=== PATIENT | female | born 1975 | race Caucasian/White ===

== ENCOUNTER 2017-03-11 13:14 | Inpatient (IN) | payer BC ==
[~2017-03-11] VITALS: Ht 167.6 cm; Wt 63.2 kg
[~2017-03-11 13:14] MED LIST: AMOXICILLIN500 M2 PO; NOMEDS; ZOFRAN ODT4 MG PO
[2017-03-11 13:18] VITALS: BP 115/63
[2017-03-11 13:37] LABS: URINE BILIRUBIN - DIPSTICK NEGATIVE (NEG); URINE BLOOD 2+ (NEG)
[2017-03-11 13:42] LABS: LYMPH # 0.5 K/mm3 (0.7-4.5); LYMPH % 3.5 % (10-50.0)
--- NOTE | 2017-03-11 14:15 | Emergency Room Report ---
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 N Clinical Suspician of Infection? N Mental Status: 1 - Regular (Normal Baseline) Sepsis Risk:Possible Sepsis Risk Have you (or family members/close friends) recently traveled outside the [place]? N If Yes, where/when: Have you had exposure to infectious disease within the past month? N TB? Other? Specify: 42 years old white female with history of kidney stone. She developed left-sided flank pain yesterday. Woke up this morning with fever and chills vomited 4 times at work and she came to the ED. She denies having diarrhea hematemesis melanotic stool dysuria hematuria or frequency. She has BAD ORAL hygiene. Source patient, RN notes reviewed, family Exam Limitations no limitations ALLERGIES Coded Allergies: No Known Allergies (04/10/16) History Medical History General CAD? No Angina: No MT: No Hypertension? No Hyperlipidemia? No CHF? No DVT? No PE? No COPD? No Asthma? No Anemia? No GERD? No Gastric ulcers? No GI Bleed? No Hernia? No Thyroid Problems? No Hypothyroidism? No CVA? No Seizures? No Diabetes? No Renal Insuffiency? No End Stage Renal Disease? No UTI? No Stones? No GB Disease: No Nephritic Syndrome? No Asplenia? No Hepatitis? No Sickle Cell Disease? No Arthritis? No Migraines? No Cataracts? No Glaucoma? No MRSA? No HIV? No TB? No Anxiety? No Depression? No Cancer? No Immunization Hx DT/Tetanus > 10 Years Ago Surgical Hx Previous Surgery?Y Hysterect LASER FOR ENDOMETRIOSIS COMMUNICATION SPEC Hx LMP N/A Social History Smoking Hx Smoker: Never Smoker Tobacco: No Alcohol Alcohol: No Review of Systems All Other Systems Reviewed and Negative Constitutional see HPI, fever Eyes no symptoms reported ENT no symptoms reported. Respiratory no symptoms reported Cardiovascular no symptoms reported Gastrointestinal no symptoms reported, see HPI, nausea, vomiting Genitourinary no symptoms reported, see HPI. Musculoskeletal no symptoms reported Skin no symptoms reported Psychiatric/Neurological no symptoms reported Physical Exam Vital Signs Vital Signs Date Time Temp Pulse Resp B/P Pulse O2 O2 Flow FiO2 Ox Delivery Rate 03/11 1526 99.8 90 16 119/73 98 03/11 1451 99.8 90 16 119/73 98 03/11 1426 106 16 119/73 98 03/11 1318 101.2 118 20 115/63 96 - WBC >12,000 or <4,000 or 10% bands? 2 or more SIRS Criteria Met? B/P:115/63 MAP: Creatinine >2.0? UA output<0.5ml/kg/hr for 2 hrs? Platelet count >100,000? Lactate >2.0mmol/1? INR >1.2 or PTT > than 60 sec? Evidence of Organ Dysfunction? Provider documented clinical suspician of infection? N Sepsis Criteria Count: 3 Sepsis Risk: Possible Sepsis Risk General Appearance normal appearance, WD/WN, no apparent distress Eye Exam - bilateral eye normal exam, bilateral eye PERRL, bilateral eye EOMI Ear, Nose, Throat hearing grossly normal, normal ENT inspection, POOR DENTAL HYGIENE WITH FOUL SMELL Neck normal inspection, non-tender, supple, full range of motion Respiratory Status Yes: trachea midline, chest symmetrical, non tender chest. No: respiratory distress. Lung Sounds bilateral: normal breath sounds, lungs clear. Cardiovascular normal exam, regular rate/rhythm, no peripheral edema, no gallop, no JVD, no murmur, no rub, normal peripheral pulses Peripheral Pulses Pulses normal Yes Gastrointestinal soft, no guarding, no rebound, tenderness, THE PATIENT HAD left LOWER QUADRANT TENDERNESS WITH NO REBOUND ACROSS TENDERNESS SHE DID HAVE left cva TENDERNESS, THE ABDOMEN WAS SOFT NO GUARDING NO RIGIDITY, POSITIVE BOWEL SOUNDS. Back normal inspection, no CVA tenderness, no vertebral tenderness, CVA tenderness (L) Extremities non-tender, normal range of motion, normal inspection Pelvic normal external exam Nurse present during exam? 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 No Results/Orders Laboratory Tests 03/11/17 1421: Lactic Acid 0.8 03/11/17 1330: Sodium 140, Potassium 3.7, Chloride 104, Carbon Dioxide 25, BUN 17, Creatinine 1.2 H, Estimated Creat Clear 57, Estimated GFR (MDRD) 50 L, Glucose 116 H, Calcium 8.8, Total Bilirubin 0.6, AST 12 L, ALT 14, Alkaline Phosphatase 126 H , Total Protein 7.8, Albumin 4.1, Globulin 3.7 H, Albumin/Globulin Ratio 1.1, WBC 14.7 H, RBC 4.84, Hgb 14.0, Hct 42.1, MCV 87.1, RDW 12.7, Plt Count 238, MPV 6.9 L, Gran % 91.3 H, Gran # 13.4 H, Total Counted 100, Lymphocytes % 3.5 L, Monocytes % 3.5, Eosinophils % 1.4, Basophils % 0.3, Neutrophils 89 H, Lymphocytes (Manual) 5 L, Lymphocytes # 0.5 L, Monocytes (Manual) 6, Monocytes # 0.5, Eosinophils # 0.2, Basophils # 0.0, Platelet Estimate NORMAL, PUBS MCHC 33.3, MCH 29.0 03/11/17 1320: Urine Color YELLOW, Urine Appearance CLOUDY, Urine pH 5.5, Ur Specific [place] 1.025, Urine Protein NEGATIVE, Urine Ketones NEGATIVE, Urine Blood 2+ H, Urine Nitrate POSITIVE H, Urine Bilirubin NEGATIVE, Urine Urobilinogen 0.2, Ur Leukocyte Esterase 3+ H, Urine RBC 3-5, Urine WBC 20-50, Ur Squamous Epith Cells 3-5, Urine Bacteria 4+, Urine Glucose NEGATIVE Current Medication Orders Sig/Richard Start time Last Medication Dose Route Stop Time Status Admin Ceftriaxone Sodium 0 .STK-MED ONE 03/11 1431 DC IV Ondansetron HCl 4 MG ONCE ONE 03/11 1430 DC 03/11 IV 03/11 1431 1439 Sodium Chloride 50 ML .STK-MED ONE 03/11 1430 DC IV Acetaminophen 650 MG ONCE ONE 03/11 1415 CAN PO 03/11 1416 Ceftriaxone Sodium 1 GM ONCE ONE 03/11 1415 DC 03/11 Sodium Chloride 50 ML IV 03/11 1444 1432 Acetaminophen 650 MG ONCE ONE 03/11 1345 DC 03/11 PO 03/11 1346 1353 Ondansetron HCl 4 MG 03/11 1345 CAN IV Sodium Chloride 1,000 ML .Q1H1M 03/11 1345 DC 03/11 IV 03/11 1445 1343 Sodium Chloride 10 ML PRN PRN 03/11 1345 AC IV 03/12 1332 Acetaminophen 0 .STK-MED ONE 03/11 1338 DC PO Ondansetron HCl 0 .STK-MED ONE 03/11 1338 DC .ROUTE Sodium Chloride 1,000 ML .STK-MED ONE 03/11 1338 DC IV Sodium Chloride 10 ML PRN PRN 03/11 1330 AC IV 03/12 1330 Orders Procedure Date/time Status Decision to admit 03/11 1524 Active CULTURE, BLOOD 03/11 1409 Active LACTIC ACID 03/11 1409 Complete IV SALINE LOCK 03/11 1332 Active URINALYSIS/COMPLETE 03/11 1332 Complete CBC WITH AUTO DIFF 03/11 133 Complete CHEM 12 PROFILE 03/11 1332 Complete DIFFERENTIAL-WBC 03/11 1330 Complete CULTURE, URINE 03/11 1320 Active Departure Departure Time of Disposition 1657 Disposition Still a Patient Clinical Impression Primary Impression: Pyelonephritis Condition STABLE Referrals Robin Germain MD Discharge Counseling Counseled pt/family regarding diagnosis, test results, medications/RX, follow up needs ED Critical Care Critical Care No If Critical Care minutes are documented, the time involved in the performance of seperately reportable procedures was not counted toward critical care time documented. I directly delivered medical care to this critically ill and/or injured patient. Timely evaluation and treatment was necessary to address the significant organ system(s) dysfunction present in this patient. at 1658
[2017-03-11 14:17] LABS: NEUTROPHILS 89 % (42-76)
[2017-03-11 17:26] VITALS: BP 119/73
--- NOTE | 2017-03-11 17:43 | HISTORY AND PHYSICAL REPORT ---
Demographics: Admit date: 03/11/17 Chief complaint: LEFT flank pain with nausea and vomiting PRIMARY DIAGNOSIS: left PYELONEPHRITIS Allergies: Coded Allergies: No Known Allergies (04/10/16) History of present illness: History of present illness: 42-year-old female with history of kidney stones noticed onset of mild discomfort in the LEFT back yesterday evening. Patient continued to have pain this morning and symptoms progressed to include nausea and vomiting along with subjective fevers. Patient tried to go to work where she continued to have episodes of nausea and vomiting. Patient did not really increase the because of her symptoms she presented to the emergency department. In the emergency department she had an elevated white blood cell count, abnormal urine, LEFT flank and CVA tenderness. Exam and labs were consistent with pyelonephritis and she has been admitted for IV fluid hydration and IV antibiotics. Patient is received Rocephin in the emergency department. She denies any significant history of urinary tract infections Past medical history: Family HX Family Hx Insignificant No Immunization HX DT/Tetanus > 10 Years Ago General CAD? No Angina: No AL: No Hypertension? No Hyperlipidemia? No CHF? No DVT? No PE? No COPD? No Asthma? No Anemia? No GERD? No Gastric ulcers? No GI Bleed? No Hernia? No Thyroid Problems? No Hypothyroidism? No CVA? No Seizures? No Diabetes? No Renal Insuffiency? No UTI? No Stones? No GB Disease: No Nephritic Syndrome? No Asplenia? No Hepatitis? No Sickle Cell Disease? No Arthritis? No Migraines? No Cataracts? No Glaucoma? No MRSA? No HIV? No TB? No Anxiety? No Depression? No Cancer? No Past Surgical HX Previous Surgery?Y Hysterect LASER FOR ENDOMETRIOSIS Social Hx: Smoking HX Tobacco No Alcohol Alcohol: No Hx of Drug Use Drug Use? No Patien't marital status is Review of systems: Constitutional see HPI. Respiratory no symptoms reported. Cardiovascular no symptoms reported Gastrointestinal/Abdominal see HPI Genitourinary see HPI. Musculoskeletal no symptoms reported. Neurological Yes: no symptoms reported. Exam: Lab data for last 24 hours: Laboratory Tests 03/11/17 1421: Lactic Acid 0.8 03/11/17 1330: Sodium 140, Potassium 3.7, Chloride 104, Carbon Dioxide 25, BUN 17, Creatinine 1.2 H, Estimated Creat Clear 57, Estimated GFR (MDRD) 50 L, Glucose 116 H, Calcium 8.8, Total Bilirubin 0.6, AST 12 L, ALT 14, Alkaline Phosphatase 126 H , Total Protein 7.8, Albumin 4.1, Globulin 3.7 H, Albumin/Globulin Ratio 1.1, WBC 14.7 H, RBC 4.84, Hgb 14.0, Hct 42.1, MCV 87.1, RDW 12.7, Plt Count 238, MPV 6.9 L, Gran % 91.3 H, Gran # 13.4 H, Total Counted 100, Lymphocytes % 3.5 L, Monocytes % 3.5, Eosinophils % 1.4, Basophils % 0.3, Neutrophils 89 H, Lymphocytes (Manual) 5 L, Lymphocytes # 0.5 L, Monocytes (Manual) 6, Monocytes # 0.5, Eosinophils # 0.2, Basophils # 0.0, Platelet Estimate NORMAL, PUBS MCHC 33.3, MCH 29.0 03/11/17 1320: Urine Color YELLOW, Urine Appearance CLOUDY, Urine pH 5.5, Ur Specific [place] 1.025, Urine Protein NEGATIVE, Urine Ketones NEGATIVE, Urine Blood 2+ H, Urine Nitrate POSITIVE H, Urine Bilirubin NEGATIVE, Urine Urobilinogen 0.2, Ur Leukocyte Esterase 3+ H, Urine RBC 3-5, Urine WBC 20-50, Ur Squamous Epith Cells 3-5, Urine Bacteria 4+, Urine Glucose NEGATIVE Microbiology 03/11 142 BLOOD: Anaerobic Blood Culture - RECD 03/11 142 BLOOD: Aerobic Blood Culture - RECD 03/11 1421 BLOOD: Anaerobic Blood Culture - RECD 03/11 142 BLOOD: Aerobic Blood Culture - RECD 03/11 1320 URINE CC: Urine Culture - RECD Admission vital signs: 1ST Vital Signs Result Date Time Pulse Ox 96 03/11 1318 B/P 115/63 03/11 1318 Temp 101.2 03/11 1318 Pulse 118 03/11 1318 Resp 20 03/11 1318 O2 Delivery ROOM AIR 03/11 1726 Exam General appearance: normal appearance, alert, awake Eyes: normal exam, anicteric ENT: normal exam, mucous membranes moist, teeth/gums abnormal Neck: normal inspection, non-tender, no carotid bruit, no JVD Cardiovascular: normal exam Respiratory: normal exam, clear to auscultation ABD: soft, bowel sounds present, tenderness (LEFT FLANK AND LEFT LOWER QUAD), LEFT CVAT TENDERNESS Extremities: moves all Plan: Problem List 1. Pyelonephritis Plan: Admit for IV antibiotics and IV fluids. Antiemetics and pain medications have been ordered as well at 1743
--- NOTE | 2017-03-11 17:49 | RADIOLOGY REPORT PS360 ---
CT ABD PELVIS W/O CONTRAST CLINICAL INDICATION: LEFT CVA PAIN, FEVER AND WBCS IN THE URINE ORDERING PHYSICIAN: Nate Murguia MD PATIENT AGE: 42 years COMPARISON: None TECHNIQUE: Axial images obtained with sagittal and coronal reformats. PROCEDURE: Oral Contrast: None IV Contrast: None . FINDINGS: There are mild atelectatic changes in the lung bases. The liver, gallbladder, spleen, adrenal glands, and pancreas have an unremarkable unenhanced CT appearance. There are punctate bilateral renal calculi measuring up to 3 mm in the lower pole on the right and 2 mm in the lower pole on the left. There is moderate left hydronephrosis and hydroureter secondary to a stone within the distal one third of the left ureter at the pelvic inlet. At least one stone measures 5 mm x 5 mm with 2 smaller stones just proximal to this larger stone measuring 4 and 3 mm. The stones are partially 5 mm proximal to the ureterovesical junction. There is moderate stranding of the left perinephric and proximal periureteral fat. Unremarkable appendix. No evidence of diverticulitis, intestinal obstruction, or free air. No acute bony anomalies IMPRESSION: 1. Left distal ureteral calculi with moderate hydronephrosis and hydroureter as described above. The largest stone in the distal left ureter measuring approximately 5 x 5 mm. There is moderate stranding of the left perinephric and periureteral fat suggesting underlying inflammation/infection or hemorrhage 2. Bilateral nephrolithiasis
[2017-03-11 18:55] VITALS: BP 123/61
[2017-03-11 19:34] VITALS: BP 96/59
[2017-03-11 19:40] VITALS: BP 96/59
[2017-03-12 04:19] VITALS: BP 91/51
[2017-03-12 07:05] LABS: LYMPH % 12.8 % (10-50.0)
[2017-03-12 07:17] LABS: HEMOGLOBIN 11.1 g/dL (12.2-16.2)
--- NOTE | 2017-03-12 07:32 | ACUTE CARE PROGRESS NOTE (QUA) ---
Progress Notes Subjective Date 03/12/17 Time 0730 Note Patient reports feeling slightly better. She is hungry. Pain is improved slightly. She's been ambulating. Nursing staff reports blood cultures are growing gram-negative nayla which is likely E. coli per preliminary testing. Patient appears comfortable. Lungs are clear. Heart is regular rate and rhythm. Abdomen has LEFT anterior flank and LEFT lower quadrant tenderness. Continue IV antibiotics which patient will need for solid week due to bacteremia associated with her pyelonephritis. Continue IV fluids. Advance diet. Assessment/Plan Problem List 1. Pyelonephritis This inpt stay is expected to cross 2 MNs from start of care Yes at 0731
--- NOTE | 2017-03-12 07:40 | PHARMACY CLINIC NOTE ---
Patient Demographics Patient Demographics Admission date: 03/11/17 Date: 03/12/17 Time: 0739 Allergies Coded Allergies: No Known Allergies (04/10/16) HEIGHT- FT: 5 IN: 6.00 K.192 VTE General Information Labs: Laboratory Tests 03/12 03/11 0640 1330 Hematology Hgb (12.2 - 16.2 g/dL) 11.1 L 14.0 Hct (37.0 - 47.0 %) 33.1 L 42.1 Plt Count (142 - 424 K/mm3) 170 238 Disclaimer The following section includes nursing documentation that has been pulled in for pharmacy review. Patient's VTE score: 1 Patient's VTE Risk: VERY LOW RISK Clinical trial participant? No VTE prophylaxis NQF [id number] VTE prophylaxis ordered? Yes Type of prophylaxis/treatment: SAVANNAH at 0739
[2017-03-12 08:00] VITALS: BP 100/72
[2017-03-12 08:01] VITALS: BP 100/72; BP 91/51
[2017-03-12 15:10] VITALS: BP 110/59
[2017-03-12 19:46] VITALS: BP 106/69
[2017-03-12 20:30] VITALS: BP 106/69
[2017-03-13 04:43] VITALS: BP 108/63
--- NOTE | 2017-03-13 07:27 | ACUTE CARE PROGRESS NOTE (QUA) ---
Progress Notes Subjective Date 03/13/17 Time 0725 Note Patient reports improvement in pain. She has not had any fevers and over 24 hours. Her only pain is been headache and that is now resolved. Patient looks well. Lungs are clear. Heart has regular rate and rhythm. Abdomen is soft. LEFT flank is nontender. CT scan performed late on the day of admission did show a 5 x 5 mm LEFT distal ureteral stone. Patient will remain on IV fluids today until she receives her evening dose of Rocephin. When she receives her dose of Rocephin she can be discharged home. She will need daily IV antibiotics with dose of Rocephin 1 g daily given intravenously. She will follow-up with her primary care physician Dr. Donato Gillespie on Wednesday or Wednesday of this coming week. KUB will be performed today. There is a chance patient may have passed the stone as her pain has improved significantly. Objective Findings Last VS-Temp:98.0 B/P:108/63 Pulse:78 Resp:16 SaO2:96 ROOM AIR Last weight lbs:139 oz:5 K.192 Method:Bed Scales Assessment/Plan Problem List 1. Pyelonephritis 2. E coli bacteremia 3. Ureterolithiasis Patient condition Stable Plan: continue current care, initiate discharge plan This inpt stay is expected to cross 2 MNs from start of care Yes at 0701
--- NOTE | 2017-03-13 07:29 | Discharge Summary ---
Demographics Admit date: 03/11/17 Discharge date: 03/13/17 Discharge diagnoses Problem List 1. Pyelonephritis 2. E coli bacteremia 3. Ureterolithiasis History of present illness History of present illness 42-year-old female with history of kidney stones noticed onset of mild discomfort in the LEFT back yesterday evening. Patient continued to have pain this morning and symptoms progressed to include nausea and vomiting along with subjective fevers. Patient tried to go to work where she continued to have episodes of nausea and vomiting. Patient did not really increase the because of her symptoms she presented to the emergency department. In the emergency department she had an elevated white blood cell count, abnormal urine, LEFT flank and CVA tenderness. Exam and labs were consistent with pyelonephritis and she has been admitted for IV fluid hydration and IV antibiotics. Patient is received Rocephin in the emergency department. She denies any significant history of urinary tract infections. Patient was admitted and placed on IV Rocephin. Within 24 hours urine and blood cultures were positive for E. coli that was sensitive to Rocephin. Patient was continued on Rocephin 1 g intravenously daily. Patient showed gradual improvement. After 24 hours patient became afebrile and remained afebrile the rest of hospitalization. She was maintained on IV fluids of normal saline at 150 ML's an hour during hospitalization. After 24 hours she did not require any further pain medication. CT scan performed late on the evening of admission did confirm a 5 x 5 mm distal LEFT ureteral stone. As patient's pain improved there is a chance she may have passed a stone. KUB was performed on the day of discharge. As patient had improved and was not having any pain decision was made to discharge patient to home. She received her third dose of IV antibiotics on the day of discharge and will need to return for 4 additional doses to complete a seven-day course of intravenous Rocephin. This was arranged prior to discharge. Patient will follow-up with her primary care physician Dr. Donato Gillespie early this coming week. Medications Medications: Discharge meds are as noted. Follow up Follow up in office in: 4 DAYS with: DONATO GILLESPIE
[2017-03-13] MEDS ORDERED: NORCO 325 MG-51 TAB PO (07:30)
[2017-03-13 08:00] VITALS: BP 123/82
--- NOTE | 2017-03-13 09:18 | RADIOLOGY REPORT PS360 ---
KUB (SINGLE VIEW) HISTORY: left distal ureter stone 5x5 mm, progress study Patient Age: 42 years: Female Ordering Physician: Robin Germain MD TECHNIQUE: AP supine abdomen. KUB. COMPARISON :CT abdomen pelvis from 03/11/2017 FINDINGS Mild atelectasis likely at the left lung base.. . On plain film days left ureteral stone is again seen projected over the left inferior sacrum, just medial to the inferior margin of the left SI joint. On plain film this measures up to~ 4 mm size] IN its transverse dimension on plain film. It is not progressed significantly since the comparison CT 03/11/2017. But perhaps 2 mm more distal but this is equivocal . More inferiorly at the pelvis there is a phlebolith with. Central lucency.. A generous stool is seen throughout the colon suggesting mild constipation. No distal calculi are seen in either kidney on plain film evaluation. IMPRESSION: The 4 mm distal left ureteral stone again noted projected over the left sacrum. no definitive movement since CT from 03/11/2017. Question perhaps 1 to 2 mm more distal at left ureter but this is equivocal Generous stool seen throughout the colon reflecting moderate constipation.
[2017-03-13 13:16] VITALS: BP 123/82
--- OUTSIDE RECORDS SUMMARY | 2017-04-16 18:16 | External Medical Summary Rpt ---
Author Author , BRADLEY HUERTA Address Unknown Phone [email or web address] 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 CHRONIC R07.89 OTHER CHEST PAIN R11.2 NAUSEA WITH VOMITING, UNSPECIFIED Allergies, Adverse Reactions, Alerts Type Allergy to substance Adverse Reaction to Substance Substance Reaction Severity NO KNOWN ALLERGIES Unknown Unknown Medications Na ND Rx Da Fi Fi Am Da Di Ph RX Ph St me C No te ll ll ou ys ag ar # ys at rm s nt no ma ic us Or Da si cy ia de te s n re d Sa 63 11 0 No li 80 -1 ne 70 5- Lo 10 20 ng Fl 07 13 er us 5 h Ac 10 ti ML ve Sy ri ng e KE 00 11 0 No TO 40 -1 RO 93 5- Lo LA 79 20 ng C 50 13 er 30 1 Ac MG ti /M ve L AL BU 00 11 0 No TA 60 -1 LB 32 5- Lo -A 54 20 ng CE 42 13 er TA 1 WI Ac N- ti CA ve FF 50 -3 25 -4 0 Vital Signs 05-26-2013 15:50 Name Value Interpretat Reference Comment ion Range Body 98.2 [degF] Temperature BP 82 mm[Hg] Diastolic BP Systolic 131 mm[Hg] Heart 79 /min Rate/Pulse O2% 98 % Respiratory 18 /min Rate 05-26-2013 15:14 Name Value Interpretat Reference Comment ion Range O2% 99 % Respiratory 18 /min Rate 05-26-2013 14:13 Name Value Interpretat Reference Comment ion Range BP 91 mm[Hg] Diastolic BP Systolic 143 mm[Hg] Heart 83 /min Rate/Pulse Results Labs Lab Lab Date Result Refere Interp Status Commen Order Detail nces retati t Range on UA Microscopic Pnl # Ur Auto (03-24-2017 08:59) Hyaline 03-24- 0-6 0-6 complet Casts 017 /LPF ed Ur Ql 08:59 Auto [place] 0-2 None complet s 017 /HPF Seen, ed #/area 08:59 0-2 UrnS HPF Bacteri [id number] None complet a Ur Ql 017 00 Not Seen, ed Auto 08:59 detecte Trace d SCT /HPF Ref lab Automat complet test 017 ed ed method 08:59 Microsc opy WBC Ur 21-30 None complet Ql Auto 017 /HPF Seen ed 08:59 RBC # 7-12 None complet Ur 017 /HPF Seen, ed 08:59 0-2 UA Dipstick Pnl Ur (03-24-2017 08:59) Color [id number] Yellow, complet Ur 017 09 Straw ed 08:59 Yellow color SCT Urobili 0.2 0.2 - complet nogen 017 E.U./dL 1.0 ed Ur Ql 08:59 E.U./dL Strip Nitrite [id number] Negativ complet Ur Ql 017 09 e ed Strip 08:59 Negativ e SCT Leukocy [id number] Negativ complet te 017 00 e ed esteras 08:59 Moderat e Ur Ql e number Strip.a SCT uto Prot Ur [id number] Negativ complet Ql 017 09 e ed Strip 08:59 Negativ e SCT Hgb Ur 3571386 Negativ complet Ql 017 04 e ed Strip.a 08:59 Small uto SCT Bilirub [id number] Negativ complet Ur Ql 017 09 e ed Strip 08:59 Negativ e SCT Ketones 3513815 Negativ complet Ur Ql 017 09 e ed Strip 08:59 Negativ e SCT Glucose 8391336 Negativ complet Ur 017 09 e ed Strip-m 08:59 Negativ Cnc e SCT Sp Gr 1.019 1.001-1 complet Ur 017 .030 ed Strip 08:59 pH Ur 6.0 5.0-8.0 complet Strip.a 017 ed uto 08:59 Clarity [id number] Clear complet Ur 017 5 ed 08:59 Cloudy SCT Bacteria Ur Cult (03-24-2017 08:59) Bacteri [id number] complet a XXX 017 9 ed Aerobe 08:59 Normal Cult jennyfer SCT URINALYSIS/COMPLETE (05-26-2013 14:55) URINE 11-15-2 DK YELLOW complet COLOR 013 YELLOW ed 14:55 URINE 11-15-2 CLOUDY CLEAR complet APPEARA 013 ed NCE 14:55 URINE 11-15-2 NEGATIV NEG complet GLUCOSE 013 E ed - 14:55 DIPSTIC K URINE 11-15-2 NEGATIV NEG complet BILIRUB 013 E ed IN - 14:55 DIPSTIC K URINE 11-15-2 NEGATIV NEG complet KETONE 013 E mg/dL ed 14:55 URINE 11-15-2 Greater 1.005-1 complet SPECIFI 013 than .030 ed C 14:55 or GRAVITY equal to 1.030 URINE 11-15-2 NEGATIV NEG complet BLOOD 013 E ed 14:55 URINE 11-15-2 5.5 UNK 5.0-8.5 complet PH 013 ed 14:55 URINE 11-15-2 NEGATIV NEG complet PROTEIN 013 E mg/dL ed - 14:55 DIPSTIC K URINE 11-15-2 0.2 NEG complet UROBILI 013 E.U./dL ed NOGEN - 14:55 DIPSTIC K URINE 11-15-2 NEGATIV NEG complet NITRATE 013 E ed - 14:55 DIPSTIC K URINE 11-15-2 1+ NEG complet LEUK 013 ed ESTERAS 14:55 E URINE 11-15-2 OCC 0 complet RBC 013 rbc/hpf ed 14:55 URINE 11-15-2 5-10 O complet WBC 013 wbc/hpf ed 14:55 URINE 11-15-2 3-5 0-5 complet SQUAMOU 013 #/hpf ed S CELLS 14:55 URINE 11-15-2 1+ O complet BACTERI 013 ed A 14:55 COMPREHENSIVE METABOLIC PANEL (05-26-2013 14:05) Glucose 84 74-106 complet 013 mg/dL ed Bld-mCn 14:05 c BUN 05-26- 24 7-18 complet Bld-mCn 013 mg/dL ed c 14:05 Creat 0.9 0.6-1.0 complet SerPl-m 013 mg/dL ed Cnc 14:05 ESTIMAT 77 50-200 complet ED 013 ML/MIN ed CREATIN 14:05 INE CLEARAN CE GFR 70 59- complet (ESTIMA 013 ML/MIN ed SAVANNAH) 14:05 Sodium 142 136-145 complet SerPl-s 013 mmoL/L ed Cnc 14:05 Potassi 4.2 3.5-5.1 complet um 013 mmoL/L ed SerPl-s 14:05 Cnc Chlorid 103 98-107 complet e 013 mmoL/L ed SerPl-s 14:05 Cnc CO2 26 21.0-32 complet SerPl-s 013 mmoL/L .0 ed Cnc 14:05 Calcium 9.4 8.5-10. complet 013 mg/dL 1 ed SerPl-m 14:05 Cnc Prot 9.3 6.4-8.2 complet SerPl-m 013 gm/dL ed Cnc 14:05 Albumin 5.1 3.4-5.0 complet 013 gm/dL ed SerPl-m 14:05 Cnc GLOBULI 4.2 1.3-3.2 complet N 013 gm/dL ed 14:05 ALB/JOSE 1.2 UNK 1.1-1.8 complet B RATIO 013 ed 14:05 Bilirub 0.4 0.2-1.0 complet 013 mg/dL ed SerPl-m 14:05 Cnc AST 17 U/L 15-37 complet SerPl-c 013 ed Cnc 14:05 ALT 30 U/L 30-65 complet SerPl-c 013 ed Cnc 14:05 ALP 174 U/L 50-136 complet SerPl-c 013 ed Cnc 14:05 CBC with AUTO DIFF (05-26-2013 14:05) WBC # 11-15-2 6.0 4.8-10. complet Bld 013 K/MM3 8 ed Auto 14:05 RBC # 11-15-2 5.63 4.2-5.4 complet Bld 013 M/mm3 ed Auto 14:05 Hgb 11-15-2 16.2 12.2-16 complet Bld-mCn 013 g/dL .2 ed c 14:05 Hct Fr 11-15-2 48.8 % 37.0-47 complet Bld 013 .0 ed 14:05 MCV RBC 11-15-2 86.7 fl 82.2-97 complet 013 .8 ed 14:05 MCH RBC 11-15-2 28.7 pg 27-31.2 complet Qn 013 ed Auto 14:05 MEAN 11-15-2 33.1 31.8-35 complet CORPUSC 013 g/dl .4 ed ULAR 14:05 HGB CONC RDW RBC 11-15-2 13.7 % 11.5-17 complet Auto 013 .5 ed 14:05 Platele 11-15-2 286 142-424 complet t Bld 013 K/mm3 ed Ql 14:05 Manual MEAN 11-15-2 7.7 fl 7.4-10. complet PLATELE 013 4 ed T 14:05 VOLUME Granulo 11-15-2 60.8 % 37.0-80 complet cytes 013 .0 ed Fr Bld 14:05 Auto LYMPH % 11-15-2 30.5 % 10-50.0 complet 013 ed 14:05 Monocyt 11-15-2 4.5 % 1.7-9.3 complet es Fr 013 ed Bld 14:05 Auto Eosinop 11-15-2 3.3 % 0.1-12. complet hil Fr 013 0 ed Bld 14:05 Auto Basophi 11-15-2 0.9 % 0.1-2.0 complet ls Fr 013 ed Bld 14:05 Auto Granulo 11-15-2 3.7 1.8-7.8 complet cytes # 013 K/mm3 ed Bld 14:05 Auto Lymphoc 11-15-2 1.8 0.7-4.5 complet ytes Fr 013 K/mm3 ed Bld 14:05 Auto Monocyt 11-15-2 0.3 0.1-1.0 complet es # 013 K/mm3 ed Bld 14:05 Auto Eosinop 0.2 0.0-0.4 complet hil # 013 K/mm3 ed Bld 14:05 Auto Basophi 0.1 0-0.2 complet ls # 013 K/MM3 ed Bld 14:05 Auto Encounters Encounter Start End Date Code Location Performer Type Date Emergency LINH SANTIAGO MD (ER) 3 14:33 3 15:58 [facility]
--- OUTSIDE RECORDS SUMMARY | 2017-04-16 18:16 | External Medical Summary Rpt ---
Author Author , BRADLEY HUERTA Address Unknown Phone [email or web address] Care Team Providers Care C++ Professor Name Role Phone SKYLER SANTIAGO MD, Unavailable Unavailable SKYLER SANTIAGO MD Purpose Continuity of Care Document - 05-26-2013 through 2016 Problems Code Diagnosis DOS Provider Status 461.9 461.9 ACUTE 05-26-2013 [place] SINUSITIS [facility] N12 TUBULO-INTE RSTITIAL NEPHRITIS, NOT SPCF ACUTE [...] ng CE 42 13 er TA 1 AL Ac N- ti CA ve FF 50 [...] ed #/area 08:59 0-2 UrnS HPF Bacteri [id number] None complet a Ur Ql 017 00 Not Seen, ed Auto 08:59 detecte Trace d SCT /HPF Ref lab Automat complet test 017 ed ed method 08:59 Microsc opy WBC Ur 21-30 None complet Ql Auto 017 /HPF Seen ed 08:59 RBC # 7-12 None complet Ur 017 /HPF Seen, ed 08:59 0-2 UA Dipstick Pnl Ur (03-24-2017 08:59) Color [id number] Yellow, complet Ur 017 09 Straw ed 08:59 Yellow color SCT Urobili 0.2 0.2 - complet nogen 017 E.U./dL 1.0 ed Ur Ql 08:59 E.U./dL Strip Nitrite [id number] Negativ complet Ur Ql 017 09 e ed Strip 08:59 Negativ e SCT Leukocy 7602912 Negativ complet te 017 00 e ed esteras 08:59 Moderat e Ur Ql e number Strip.a SCT uto Prot Ur 7397373 Negativ complet Ql 017 09 e ed Strip 08:59 Negativ e SCT Hgb Ur 0164637 Negativ complet Ql 017 04 e ed Strip.a 08:59 Small uto SCT Bilirub 0563395 Negativ complet Ur Ql 017 09 e ed Strip 08:59 Negativ e SCT Ketones 4431280 Negativ complet Ur Ql 017 09 e ed Strip 08:59 Negativ e SCT Glucose 2644064 Negativ complet Ur 017 09 e ed Strip-m 08:59 Negativ Cnc e SCT Sp Gr 1.019 1.001-1 complet Ur 017 .030 ed Strip 08:59 pH Ur 6.0 5.0-8.0 complet Strip.a 017 ed uto 08:59 Clarity 1692160 Clear complet Ur 017 5 ed 08:59 Cloudy SCT Bacteria Ur Cult (03-24-2017 08:59) Bacteri 2023896 complet a XXX 017 9 ed Aerobe [...] SANTIAGO MD (ER) 3 14:33 3 15:58 [facility]
--- OUTSIDE RECORDS SUMMARY | 2017-04-16 18:16 | External Medical Summary Rpt ---
Demographics Preferred Language Guamanian Marital Status Unknown Restoration Affiliation Unknown Race Unknown Ethnic Group Unknown Author Author BRADLEY Address Unknown Phone Immunization No patient found.
--- OUTSIDE RECORDS SUMMARY | 2017-04-16 18:16 | External Medical Summary Rpt ---
Author Author BRADLEY Address Unknown Phone [email or web address] Purpose Continuity of Care Document - through 2016
--- OUTSIDE RECORDS SUMMARY | 2017-04-16 18:16 | External Medical Summary Rpt ---
Demographics Preferred Language Tristanian Marital Status Unknown Voodoo Affiliation Unknown Race Unknown Ethnic Group Unknown Author Author BRADLEY Address Unknown Phone Immunization No patient found.
--- OUTSIDE RECORDS SUMMARY | 2017-04-16 18:16 | External Medical Summary Rpt ---
Author Author BRADLEY Address Unknown Phone [email or web address] Purpose Continuity of Care Document - through 2016
--- OUTSIDE RECORDS SUMMARY | 2017-04-16 18:16 | External Medical Summary Rpt ---
Author Author SARAIPINEDA Montgomery, [facility] [employer] Organization [facility] [employer] Address Unknown Phone Unavailable Results Basic metabolic panel in Blood Observa Value Referen Units Interpr Notes Date tion ce etation Range Urea 7 - 18 mg/dL Normal No Sep 1 nitrogen informati 2017 6:40 [Mass/vol on in AM ume] in source Serum or data Plasma Calcium 8.5 - mg/dL Low No Sep 1 [Mass/vol 10.1 informati 2017 6:40 ume] in on in AM Serum or source Plasma data Chloride 98 - 107 mmoL/L High No Sep 1 [Moles/vo informati 2017 6:40 lume] in on in AM Serum or source Plasma data Carbon 21.0 - mmoL/L Normal No Sep 1 dioxide, 32.0 informati 2017 6:40 total on in AM [Moles/vo source lume] in data Serum or Plasma Creatinin 0.55 - mg/dL High No Sep 1 e 1.02 informati 2017 6:40 [Mass/vol on in AM ume] in source Serum or data Plasma Creatinin 50 - 200 ML/MIN Normal No Sep 1 e renal informati 2017 6:40 clearance on in AM source predicted data by Cockcroft -Gault formula Estimated 59- ML/MIN Low REFERENCE Sep 1 RANGE: 2017 6:40 glomerula >60 AM r ML/MIN/1. filtratio 73 SQUARE n rate METERSIf (GF this patient is -A merican, then multiply theresult by 1.210. Glucose 74 - 106 mg/dL High No Sep 1 [Mass/vol informati 2017 6:40 ume] in on in AM Serum or source Plasma data Potassium 3.5 - 5.1 mmoL/L Normal No Sep 1 informati 2017 6:40 [Moles/vo on in AM lume] in source Serum or data Plasma Sodium 136 - 145 mmoL/L Normal No Sep 1 [Moles/vo informati 2017 6:40 lume] in on in AM Serum or source Plasma data CBC W Auto Differential panel in Blood Observa Value Referen Units Interpr Notes Date tion ce etation Range Basophils 0 - 0.2 K/MM3 Normal No Sep 1 informati 2017 6:40 [#/volume on in AM ] in source Blood by data Automated count Basophils 0.1 - 2.0 % Normal No Sep 1 /100 informati 2017 6:40 leukocyte on in AM s in source Blood by data Automated count Eosinophi 0.0 - 0.4 K/mm3 Normal No Sep 1 ls informati 2017 6:40 [#/volume on in AM ] in source Blood by data Automated count Eosinophi 0.1 - % Normal No Sep 1 ls/100 12.0 informati 2017 6:40 leukocyte on in AM s in source Blood by data Automated count Granulocy 1.8 - 7.8 K/mm3 Normal No Sep 1 liborio informati 2017 6:40 [#/volume on in AM ] in source Blood by data Automated count Granulocy 37.0 - % Normal No Sep 1 liborio/100 80.0 informati 2017 6:40 leukocyte on in AM s in source Blood by data Automated count Hematocri 37.0 - % Low No Sep 1 t [Volume 47.0 informati 2017 6:40 on in AM Fraction] source of Blood data Hemoglobi 12.2 - g/dL Low No Sep 1 n 16.2 informati 2017 6:40 [Mass/vol on in AM ume] in source Blood data Lymphocyt 0.7 - 4.5 K/mm3 Normal No Sep 1 es informati 2017 6:40 [#/volume on in AM ] in source Unspecifi data ed specimen by Automated count Lymphocyt 10 - 50.0 % Normal No Sep 1 es informati 2017 6:40 [#/volume on in AM ] in source Unspecifi data ed specimen by Automated count Erythrocy 27 - 31.2 pg Normal No Sep 1 te mean informati 2017 6:40 corpuscul on in AM ar source hemoglobi data n [Entitic mass] Erythrocy 31.8 - g/dl Normal No Sep 1 te mean 35.4 informati 2017 6:40 corpuscul on in AM ar source hemoglobi data n concentra tion [Mass/vol ume] by Automated count Erythrocy 82.2 - fl Normal No Sep 1 te mean 97.8 informati 2017 6:40 corpuscul on in AM ar volume source [Entitic data volume] by Automated count Monocytes 0.1 - 1.0 K/mm3 Normal No Sep 1 inform2016 6:40 [#/volume on in AM ] in source Blood by data Automated count Monocytes 1.7 - 9.3 % Normal No Sep 2016 6:40 leukocyte on in AM s in source Blood by data Automated count Platelet 7.4 - fl Low No Sep 1 mean 10.4 informati 2016 6:40 volume on in AM [Entitic source volume] data in Blood by Automated count Platelets 142 - 424 K/mm3 No No Sep 1 informati informati 2017 6:40 [#/volume on in on in AM ] in source source Blood data data Erythrocy 4.2 - 5.4 M/mm3 Low No Sep 1 liborio informati 2016 6:40 [#/volume on in AM ] in source Amniotic data fluid Erythrocy 11.5 - % Normal No Sep 1 te 17.5 informati 2016 6:40 distribut on in AM ion width source [Entitic data volume] by Automated count Leukocyte 4.8 - K/MM3 No No Sep 1 s 10.8 informati informati 2016 6:40 [#/volume on in on in AM ] in source source Blood data data Lactate [Moles/volume] in Blood Observa Value Referen Units Interpr Notes Date tion ce etation Range Lactate 0.4 - 2.0 mmol/L Normal No Mar 11 [Moles/vo 2016 2:21 lume] in on in PM Blood source data CBC W Auto Differential panel in Blood Observa Value Referen Units Interpr Notes Date tion ce etation Range Basophils 0 - 0.2 K/MM3 Normal No Mar 11 inform2016 1:30 [#/volume on in PM ] in source Blood by data Automated count Basophils 0.1 - 2.0 % Normal No Mar 11 informati 2016 1:30 leukocyte on in PM s in source Blood by data Automated count Eosinophi 0.0 - 0.4 K/mm3 Normal No Mar 11 ls 2016 1:30 [#/volume on in PM ] in source Blood by data Automated count Eosinophi 0.1 - % Normal No Mar 11 ls/100 12.0 informati 2016 1:30 leukocyte on in PM s in source Blood by data Automated count Granulocy 1.8 - 7.8 K/mm3 High No Mar 11 liborio informati 2016 1:30 [#/volume on in PM ] in source Blood by data Automated count Granulocy 37.0 - % High No Mar 11 liborio/100 80.0 informati 2016 1:30 leukocyte on in PM s in source Blood by data Automated count Hematocri 37.0 - % Normal No Mar 11 t [Volume 47.0 informati 2016 1:30 on in PM Fraction] source of Blood data Hemoglobi 12.2 - g/dL Normal No Mar 11 n 16.2 informati 2016 1:30 [Mass/vol on in PM ume] in source Blood data Lymphocyt 0.7 - 4.5 K/mm3 Low No Mar 11 es informati 2016 1:30 [#/volume on in PM ] in source Unspecifi data ed specimen by Automated count Lymphocyt 10 - 50.0 % Low No Mar 11 es inform2016 1:30 [#/volume on in PM ] in source Unspecifi data ed specimen by Automated count Erythrocy 27 - 31.2 pg Normal No Mar 11 te mean informati 2016 1:30 corpuscul on in PM ar source hemoglobi data n [Entitic mass] Erythrocy 31.8 - g/dl Normal No Mar 11 te mean 35.4 informati 2016 1:30 corpuscul on in PM ar source hemoglobi data n concentra tion [Mass/vol ume] by Automated count Erythrocy 82.2 - fl Normal No Mar 11 te mean 97.8 informati 2016 1:30 corpuscul on in PM ar volume source [Entitic data volume] by Automated count Monocytes 0.1 - 1.0 K/mm3 Normal No Mar 11 inform2016 1:30 [#/volume on in PM ] in source Blood by data Automated count Monocytes 1.7 - 9.3 % Normal No Mar 11 / informati 2016 1:30 leukocyte on in PM s in source Blood by data Automated count Platelet 7.4 - fl Low No Mar 11 mean 10.4 informati 2016 1:30 volume on in PM [Entitic source volume] data in Blood by Automated count Platelets 142 - 424 K/mm3 Normal No Mar 11 inform2016 1:30 [#/volume on in PM ] in source Blood data Erythrocy 4.2 - 5.4 M/mm3 Normal No Mar 11 liborio informati 2016 1:30 [#/volume on in PM ] in source Amniotic data fluid Erythrocy 11.5 - % Normal No Mar 11 te 17.5 informati 2017 1:30 distribut on in PM ion width source [Entitic data volume] by Automated count Leukocyte 4.8 - K/MM3 High No Mar 11 s 10.8 informati 2016 1:30 [#/volume on in PM ] in source Blood data Differential panel, method unspecified - Observa Value Referen Units Interpr Notes Date tion ce etation Range LYMPH 5 10 - 50 % Low No Mar 11 inform2016 tion in 1:30 PM source data Monocytes 2 - 9 % Normal No Mar 11 /100 informati 2017 1:30 leukocyte on in PM s in source Blood by data Automated count Platele NORMAL No No No No Mar 11 ts informa informa informa informa 2016 [Presen tion in tion in tion in tion in 1:30 PM ce] in source source source source Blood data data data data by Light microsc opy Neutrophi 42 - 76 % High No Mar 11 ls informati 2016 1:30 [#/volume on in PM ] in source Blood by data Automated count Cells No #CELLS No No Mar 11 Counted informati informati informati 2017 1:30 Total [#] on in on in on in PM in Blood source source source data data data Comprehensive metabolic 2000 panel in Serum or Plasma Observa Value Referen Units Interpr Notes Date tion ce etation Range Albumin/G 1.1 - 1.8 No Normal No Mar 11 lobulin informati informati 2016 1:30 [Mass on in on in PM ratio] in source source Serum or data data Plasma Albumin 3.4 - 5.0 gm/dL Normal No Mar 11 [Mass/vol informati 2016 1:30 ume] in on in PM Serum or source Plasma data Alkaline 46 - 116 U/L High No Mar 11 phosphata informati 2016 1:30 se on in PM [Enzymati source c data activity/ volume] in Serum or Plasma Bilirubin 0.2 - 1.0 mg/dL Normal No Mar 11 .total informati 2016 1:30 [Mass/vol on in PM ume] in source Serum or data Plasma Urea 7 - 18 mg/dL Normal No Mar 11 nitrogen informati 2016 1:30 [Mass/vol on in PM ume] in source Serum or data Plasma Calcium 8.5 - mg/dL Normal No Mar 11 [Mass/vol 10.1 informati 2016 1:30 ume] in on in PM Serum or source Plasma data Chloride 98 - 107 mmoL/L Normal No Mar 11 [Moles/vo informati 2017 1:30 lume] in on in PM Serum or source Plasma data Carbon 21.0 - mmoL/L Normal No Mar 11 dioxide, 32.0 informati 2017 1:30 total on in PM [Moles/vo source lume] in data Serum or Plasma Creatinin 0.55 - mg/dL High No Mar 11 e 1.02 informati 2017 1:30 [Mass/vol on in PM ume] in source Serum or data Plasma Creatinin 50 - 200 ML/MIN Normal No Mar 11 e renal informati 2016 1:30 clearance on in PM source predicted data by Cockcroft -Gault formula Estimated 59- ML/MIN Low REFERENCE Mar 11 RANGE: 2017 1:30 glomerula >60 PM r ML/MIN/1. filtratio 73 SQUARE n rate METERSIf (GF this patient is -A merican, then multiply theresult by 1.210. Globulin 1.3 - 3.2 gm/dL High No Mar 11 [Mass/vol informati 2016 1:30 ume] in on in PM Serum source data Glucose 74 - 106 mg/dL High No Mar 11 [Mass/vol informati 2016 1:30 ume] in on in PM Serum or source Plasma data Potassium 3.5 - 5.1 mmoL/L Normal No Mar 11 informati 2016 1:30 [Moles/vo on in PM lume] in source Serum or data Plasma Sodium 136 - 145 mmoL/L Normal No Mar 11 [Moles/vo informati 2017 1:30 lume] in on in PM Serum or source Plasma data Aspartate 15 - 37 U/L Low No Mar 11 informati 2016 1:30 aminotran on in PM sferase source [Enzymati data c activity/ volume] in Serum or Plasma Alanine 12 - 78 U/L Normal No Mar 11 aminotran informati 2016 1:30 sferase on in PM [Enzymati source c data activity/ volume] in Serum or Plasma Protein 6.4 - 8.2 gm/dL Normal No Mar 11 [Mass/vol informati 2017 1:30 ume] in on in PM Serum or source Plasma data Urinalysis dipstick W Reflex Microscopic panel in Urine Observa Value Referen Units Interpr Notes Date tion ce etation Range Appeara CLOUDY CLEAR No No No Mar 11 nce of informa informa informa 2016 Urine tion in tion in tion in 1:20 PM source source source data data data Bacteri 4+ O No No No Mar 11 a informa informa informa 2016 [Presen tion in tion in tion in 1:20 PM ce] in source source source Urine data data data sedimen t by Light microsc opy Bilirub NEGATIV NEG No No No Mar 11 in E informa informa informa 2016 [Presen tion in tion in tion in 1:20 PM ce] in source source source Urine data data data by Test strip Erythro 2+ NEG No Abnorma No Mar 11 cytes informa l informa 2016 [Presen tion in tion in 1:20 PM ce] in source source Urine data data Color YELLOW YELLOW No No No Mar 11 of informa informa informa 2016 Urine tion in tion in tion in 1:20 PM source source source data data data Glucose NEG No No No Mar 11 [Mass/vol informati informati informati 2016 1:20 ume] in on in on in on in PM Urine by source source source Test data data data strip Ketones NEGATIV NEG mg/dL No No Mar 11 E informa informa 2016 [Presen tion in tion in 1:20 PM ce] in source source Urine data data by Automat ed test strip Mucus 3+ NEG No Abnorma No Mar 11 [Presen informa l informa 2016 ce] in tion in tion in 1:20 PM Urine source source sedimen data data t by Light microsc opy Nitrite POSITIV NEG No Abnorma No Mar 11 E informa l informa 2016 [Presen tion in tion in 1:20 PM ce] in source source Urine data data by Test strip pH of 5.0 - 8.5 No Normal No Mar 11 Urine informati informati 2017 1:20 on in on in PM source source data data Protein NEG mg/dL No No Mar 11 [Mass/vol informati informati 2016 1:20 ume] in on in on in PM Urine by source source Automated data data test strip Erythro 3-5 0 rbc/hpf No No Mar 11 cytes informa informa 2016 [Presen tion in tion in 1:20 PM ce] in source source Urine data data sedimen t by Light microsc opy Specific 1.005 - No Normal No Mar 11 gravity 1.030 informati informati 2017 1:20 of Urine on in on in PM source source data data Epithel 3-5 0 - 5 #/hpf No No Mar 11 ial informa informa 2017 cells.s tion in tion in 1:20 PM quamous source source data data [Presen ce] in Urine sedimen t by Microsc opy high power field Urobili 0.2 NEG E.U./dL No No Mar 11 nogen informa informa 2016 [Presen tion in tion in 1:20 PM ce] in source source Urine data data by Test strip Leukocy [20 O wbc/hpf No No Mar 11 liborio wbc/hpf informa informa 2016 [#/volu ; 50 tion in tion in 1:20 PM me] in wbc/hpf source source Urine ] data data Urinalysis dipstick W Reflex Microscopic panel in Urine Observa Value Referen Units Interpr Notes Date tion ce etation Range Appeara CLOUDY CLEAR No No No Mar 11 nce of informa informa informa 2017 Urine tion in tion in tion in 1:20 PM source source source data data data Bilirub NEGATIV NEG No No No Mar 11 in E informa informa informa 2016 [Presen tion in tion in tion in 1:20 PM ce] in source source source Urine data data data by Test strip Erythro 2+ NEG No Abnorma No Mar 11 cytes informa l informa 2016 [Presen tion in tion in 1:20 PM ce] in source source Urine data data Color YELLOW YELLOW No No No Mar 11 of informa informa informa 2017 Urine tion in tion in tion in 1:20 PM source source source data data data Glucose NEG No No No Mar 11 [Mass/vol informati informati informati 2017 1:20 ume] in on in on in on in PM Urine by source source source Test data data data strip Ketones NEGATIV NEG mg/dL No No Mar 11 E informa informa 2017 [Presen tion in tion in 1:20 PM ce] in source source Urine data data by Automat ed test strip Mucus 3+ NEG No Abnorma No Mar 11 [Presen informa l informa 2016 ce] in tion in tion in 1:20 PM Urine source source sedimen data data t by Light microsc opy Nitrite POSITIV NEG No Abnorma No Mar 11 E informa l informa 2016 [Presen tion in tion in 1:20 PM ce] in source source Urine data data by Test strip pH of 5.0 - 8.5 No Normal No Mar 11 Urine informati informati 2016 1:20 on in on in PM source source data data Protein NEG mg/dL No No Mar 11 [Mass/vol informati informati 2016 1:20 ume] in on in on in PM Urine by source source Automated data data test strip Specific 1.005 - No Normal No Mar 11 gravity 1.030 informati informati 2016 1:20 of Urine on in on in PM source source data data Urobili 0.2 NEG E.U./dL No No Mar 11 nogen informa informa 2016 [Presen tion in tion in 1:20 PM ce] in source source Urine data data by Test strip
--- OUTSIDE RECORDS SUMMARY | 2017-04-16 21:15 | External Medical Summary Rpt ---
Author Author , [facility] HUERTA Address Unknown Phone [email or web address] Care Team Providers Care Information Systems Auditor Name Role Phone SKYLER SANTIAGO MD, Unavailable Unavailable SKYLER SANTIAGO MD Purpose Continuity of Care Document - 05-26-2013 through 2016 Problems Code Diagnosis DOS Provider Status 461.9 461.9 ACUTE 05-26-2013 [place] SINUSITIS [facility] N12 TUBULO-INTE RSTITIAL NEPHRITIS, NOT SPCF ACUTE OR CHRONIC N20.1 Calculus of ureter R07.89 OTHER CHEST PAIN R11.2 NAUSEA WITH [...] ng CE 42 13 er TA 1 TN Ac N- ti CA ve FF 50 [...] Order Detail nces retati t Range on Bacteria Ur Cult (03-24-2017 08:59) Bacteri 0349987 complet a XXX 017 9 ed Aerobe 08:59 Normal Cult jennyfer SCT UA Microscopic Pnl # Ur Auto (03-24-2017 08:59) Hyaline 0-6 0-6 complet Casts 017 /LPF ed Ur Ql 08:59 Auto Squamou 0-2 None complet s 017 /HPF Seen, ed #/area 08:59 0-2 UrnS HPF Bacteri [id number] None complet a Ur Ql 017 00 Not Seen, ed Auto 08:59 detecte Trace d SCT /HPF Ref lab Automat complet test 017 ed ed method 08:59 Microsc opy WBC Ur 21-30 None complet Ql Auto 017 /HPF Seen ed 08:59 RBC # 03-24- 7-12 None complet Ur 017 /HPF Seen, ed 08:59 0-2 UA Dipstick Pnl Ur (03-24-2017 08:59) Urobili 03-24- 0.2 0.2 - complet nogen 017 E.U./dL 1.0 ed Ur Ql 08:59 E.U./dL Strip Nitrite [id number] Negativ complet Ur Ql 017 09 e ed Strip 08:59 Negativ e SCT Leukocy [id number] Negativ complet te 017 00 e ed esteras 08:59 Moderat e Ur Ql e number Strip.a SCT uto Prot Ur [id number] Negativ complet Ql 017 09 e ed Strip 08:59 Negativ e SCT Hgb Ur [id number] Negativ complet Ql 017 04 e ed Strip.a 08:59 Small uto SCT Bilirub [id number] Negativ complet Ur Ql 017 09 e ed Strip 08:59 Negativ e SCT Ketones 4800461 Negativ complet Ur Ql 017 09 e ed Strip 08:59 Negativ e SCT Glucose 1203270 Negativ complet Ur 017 09 e ed Strip-m 08:59 Negativ Cnc e SCT Sp Gr 1.019 1.001-1 complet Ur 017 .030 ed Strip 08:59 pH Ur 6.0 5.0-8.0 complet Strip.a 017 ed uto 08:59 Clarity [id number] Clear complet Ur 017 5 ed 08:59 Cloudy SCT Color 0990944 Yellow, complet Ur 017 09 Straw ed 08:59 Yellow color SCT URINALYSIS/COMPLETE (05-26-2013 14:55) URINE 11-15-2 DK [...] 14:55 COMPREHENSIVE METABOLIC PANEL (05-26-2013 14:05) Glucose 05-26-2 84 74-106 complet 013 mg/dL ed Bld-mCn 14:05 c BUN 05-26-2 24 7-18 complet Bld-mCn 013 mg/dL ed c 14:05 Creat 15-2 0.9 0.6-1.0 complet SerPl-m 013 mg/dL ed Cnc 14:05 ESTIMAT 05-26-2 77 50-200 complet ED 013 ML/MIN ed CREATIN 14:05 INE CLEARAN CE GFR 05-26-2 70 59- complet (ESTIMA 013 ML/MIN ed SAVANNAH) 14:05 Sodium 05-26-2 142 136-145 complet SerPl-s 013 mmoL/L ed Cnc 14:05 Potassi 05-26- 4.2 3.5-5.1 complet um 013 mmoL/L ed SerPl-s 14:05 Cnc Chlorid 05-26- 103 98-107 complet e 013 mmoL/L ed SerPl-s 14:05 Cnc CO2 05-26-2 26 21.0-32 complet SerPl-s 013 mmoL/L .0 ed Cnc 14:05 Calcium 05-26-2 9.4 8.5-10. complet 013 mg/dL 1 ed SerPl-m 14:05 Cnc Prot 05-26-2 9.3 6.4-8.2 complet SerPl-m 013 gm/dL ed Cnc 14:05 Albumin 05-26-2 5.1 3.4-5.0 complet 013 gm/dL ed SerPl-m 14:05 Cnc GLOBULI 05-26-2 4.2 1.3-3.2 complet N 013 gm/dL ed 14:05 ALB/JOSE 05-26-2 1.2 UNK 1.1-1.8 complet B RATIO 013 ed 14:05 Bilirub 05-26-2 0.4 0.2-1.0 complet 013 mg/dL ed SerPl-m 14:05 Cnc AST 15-2 17 U/L 15-37 complet SerPl-c 013 ed Cnc 14:05 ALT 15-2 30 U/L 30-65 complet SerPl-c 013 ed Cnc 14:05 ALP 15-2 174 U/L 50-136 complet SerPl-c 013 ed [...] ed ULAR 14:05 HGB CONC RDW RBC -15-2 13.7 % 11.5-17 complet Auto 013 .5 [...] SANTIAGO MD (ER) 3 14:33 3 15:58 [facility]
--- OUTSIDE RECORDS SUMMARY | 2017-04-16 21:15 | External Medical Summary Rpt ---
Author Author , BRADLEY HUERTA Address Unknown Phone [email or web address] Care Team Providers Care Nursing Unit Clerk Name Role Phone SKYLER SANTIAGO MD, Unavailable Unavailable SKYLER SANTIAGO MD Purpose Continuity of Care Document - 05-26-2013 through 2016 Problems Code Diagnosis DOS Provider Status 461.9 461.9 ACUTE 05-26-2013 [place] SINUSITIS [facility] N12 TUBULO-INTE RSTITIAL NEPHRITIS, NOT [...] ng CE 42 13 er TA 1 UT Ac N- ti CA ve FF 50 [...] on Bacteria Ur Cult (03-24-2017 08:59) Bacteri [id number] complet a XXX 017 9 ed Aerobe 08:59 Normal Cult jennyfer SCT UA Microscopic Pnl # Ur Auto (03-24-2017 08:59) Hyaline 0-6 0-6 complet Casts 017 /LPF ed Ur Ql 08:59 Auto Squamou 0-2 None complet s 017 /HPF Seen, ed #/area 08:59 0-2 UrnS HPF Bacteri [id number] None complet a Ur Ql 017 00 [...] ed Ur Ql 08:59 E.U./dL Strip Nitrite 5442504 Negativ complet Ur Ql 017 09 e ed Strip 08:59 Negativ e SCT Leukocy 1670884 Negativ complet te 017 00 e ed esteras 08:59 Moderat e Ur Ql e number Strip.a SCT uto Prot Ur [id number] Negativ complet Ql 017 09 e ed Strip 08:59 Negativ e SCT Hgb Ur [id number] Negativ complet Ql 017 04 e ed Strip.a 08:59 Small uto SCT Bilirub 6681458 Negativ complet Ur Ql 017 09 e ed Strip 08:59 Negativ e SCT Ketones 9109626 Negativ complet Ur Ql 017 09 e ed Strip 08:59 Negativ e SCT Glucose 7208022 Negativ complet Ur 017 09 e ed Strip-m 08:59 Negativ Cnc e SCT Sp Gr 1.019 1.001-1 complet Ur 017 .030 ed Strip 08:59 pH Ur 6.0 5.0-8.0 complet Strip.a 017 ed uto 08:59 Clarity [id number] Clear complet Ur 017 5 ed 08:59 Cloudy SCT Color 2237796 Yellow, complet Ur 017 09 Straw ed [...] SANTIAGO MD (ER) 3 14:33 3 15:58 [facility]
--- OUTSIDE RECORDS SUMMARY | 2017-04-16 21:16 | External Medical Summary Rpt ---
Author Author BRADLEY Address Unknown Phone Purpose Continuity of Care Document - through 2016
--- OUTSIDE RECORDS SUMMARY | 2017-04-16 21:16 | External Medical Summary Rpt ---
Demographics Preferred Language [place] Marital Status Unknown Rastafarian Affiliation Unknown Race Unknown Ethnic Group Unknown Author Author BRADLEY Address Unknown Phone Immunization No patient found.
--- OUTSIDE RECORDS SUMMARY | 2017-04-16 21:16 | External Medical Summary Rpt ---
Demographics Preferred Language Congolese Marital Status Unknown Mandaeism Affiliation Unknown Race Unknown Ethnic Group Unknown Author Author BRADLEY Address Unknown Phone Immunization No patient found.
== END 2017-03-13 13:30 | disposition home or self-care (01) | DRG 690 ==
LOC: ER 13:14 → 2ND 15:46
PROVIDERS: Emergency Medicine
DX: N10 Acute pyelonephritis (principal); N20.1 Calculus of ureter; B96.20 Unspecified Escherichia coli [E. coli] as the cause of diseases classified elsewhere
CPT/HCPCS: J2405

== ENCOUNTER 2017-03-14 10:58 | Outpatient (CLI) | payer BC ==
[~2017-03-14 10:58] MED LIST changes: +NORCO 325 MG-51 TAB PO
[2017-03-14 11:20] VITALS: BP 150/92
== END 2017-03-14 12:30 | disposition home or self-care (01) ==
LOC: COP 10:58
DX: N10 Acute pyelonephritis (principal); B96.20 Unspecified Escherichia coli [E. coli] as the cause of diseases classified elsewhere

== ENCOUNTER → 2017-03-15 | Outpatient (CLI) | payer BC ==
[2017-03-15 11:40] VITALS: BP 138/99
[2017-03-15 12:05] VITALS: BP 128/84
== END ==
LOC: COP 11:24
DX: N10 Acute pyelonephritis (principal); B96.20 Unspecified Escherichia coli [E. coli] as the cause of diseases classified elsewhere

== ENCOUNTER 2017-03-16 11:36 | Outpatient (CLI) | payer BC ==
[2017-03-16 12:15] VITALS: BP 130/90
[2017-03-16 12:20] VITALS: BP 128/87
== END 2017-03-16 12:30 | disposition home or self-care (01) ==
LOC: COP 11:36
DX: N10 Acute pyelonephritis (principal); B96.20 Unspecified Escherichia coli [E. coli] as the cause of diseases classified elsewhere

== ENCOUNTER 2017-03-17 09:30 | Outpatient (CLI) | payer BC ==
[2017-03-17 09:55] VITALS: BP 142/98
[2017-03-17 10:25] VITALS: BP 136/98
== END 2017-03-17 10:50 | disposition home or self-care (01) ==
LOC: COP 09:30
DX: N10 Acute pyelonephritis (principal); B96.20 Unspecified Escherichia coli [E. coli] as the cause of diseases classified elsewhere